=== PATIENT | female | born 2000 | race Caucasian/White ===

== ENCOUNTER 2021-05-06 10:44 | Outpatient (REF) | payer OTHER, SELFPAY ==
[2021-05-06 13:18] LABS: MANUAL DIFF FLAG NO
[2021-05-06 13:20] LABS: Basophils Absolute Auto 0.1 X10*3/uL (0.0-0.2); Basophils Percent Auto 0.8 % (0-2); Eosinophils Absolute Auto 0.1 X10*3/uL (0.0-0.4); Eosinophils Percent Auto 1.9 % (0-4); Hemoglobin 13.9 g/dl (12.0-16.0); Imm Gran Abs Auto 0.01 X10*3/uL (0.00-0.03); Imm Gran Pct Auto 0.2 % (0.0-0.4); Lymphocytes Absolute Auto 2.8 X10*3/uL (1.2-4.9); Lymphocytes Percent Auto 47.1 % (20-40); Mean Corpuscular HGB Conc 33.1 g/dl (31.0-35.0); Mean Corpuscular Hemoglobin 29.1 pg (27.0-33.0); Mean Corpuscular Volume 87.9 fL (80.0-98.0); Mean Platelet Volume 9.2 fL (9.4-12.3); Monocytes Absolute Auto 0.4 X10*3/uL (0.1-1.2); Monocytes Percent Auto 6.6 % (2-11); Neutrophils Absolute Auto 2.6 x10*3/uL (2.0-8.3); Neutrophils Percent Auto 43.4 % (45-73); Platelet Count 279 X10*3/uL (160-400); Red Blood Count 4.78 X10*6/uL (4.20-5.50); Red Cell Distribution Width 12.4 % (11.0-16.0); White Blood Count 5.9 X10*3/uL (4.8-10.8)
[2021-05-06 13:48] LABS: Alanine Aminotransferase 14 U/L (0-31); Albumin Level 4.3 g/dL (3.5-5.0); Alkaline Phosphatase 46 U/L (39-117); Anion Gap 11 (12-20); Aspartate Amino Transferase 15 U/L (5-31); Bilirubin Total 0.4 mg/dL (0.0-1.0); Blood Urea Nitrogen 6 mg/dL (9-16); Calcium 9.6 mg/dL (8.4-10.2); Carbon Dioxide 24 mmol/L (22-29); Chloride 109 mmol/L (96-108); Cholesterol 226 mg/dL; Estimated Glomerular Filt Rate > 60; Glucose Fasting 89 mg/dL (60-99); HDL Cholesterol 44 mg/dL; LDL Cholesterol Calculated 156 mg/dl; Potassium 4.1 mmol/L (3.3-5.1); Sodium 140 mmol/L (135-145); Total Protein 7.4 g/dL (6.5-8.0); Triglycerides 131 mg/dL
[2021-05-06 14:08] LABS: TSH reflex Free T4 1.94 uIU/mL (0.32-4.0)
== END 2021-05-06 10:45 | disposition home or self-care (01) ==
LOC: HO.HMGCLDS 10:44
PROVIDERS: PCP Internal Medicine; Visit Provider Internal Medicine
DX: Z00.01 Encounter for general adult medical examination with abnormal findings (principal)
CPT/HCPCS: 36415; 80053; 80061; 84443; 85025

== ENCOUNTER 2021-05-15 08:28 | Outpatient (REF) | payer OTHER, SELFPAY ==
[2021-05-15 15:14] LABS: CT PCR NOT DETECTED (Not Detect.); NG PCR NOT DETECTED (Not Detect.)
[2021-05-16 09:06] LABS: BV Int Neg Control Negative (Negative); BV Int Pos Control Positive (Positive)
== END 2021-05-15 08:29 | disposition home or self-care (01) ==
LOC: HO.LAB 08:28
PROVIDERS: PCP Internal Medicine; Visit Provider Advanced Practice Midwife
DX: Z30.011 Encounter for initial prescription of contraceptive pills (principal); Z20.2 Contact with and (suspected) exposure to infections with a predominantly sexual mode of transmission
CPT/HCPCS: 81025; 87480; 87491; 87510; 87591; 87660

== ENCOUNTER 2022-05-17 09:47 | Outpatient (REF) | payer OTHER, SELFPAY ==
[2022-05-18 09:56] LABS: BV Int Neg Control Negative (Negative); BV Int Pos Control Positive (Positive)
== END 2022-05-17 09:48 | disposition home or self-care (01) ==
LOC: HO.LNP 09:47
PROVIDERS: Visit Provider Advanced Practice Midwife
DX: Z01.411 Encounter for gynecological examination (general) (routine) with abnormal findings (principal); N89.8 Other specified noninflammatory disorders of vagina; N94.10 Unspecified dyspareunia
CPT/HCPCS: 87480; 87510; 87660; 88142

== ENCOUNTER 2022-08-14 09:36 | Outpatient (REF) | payer OTHER, SELFPAY ==
[2022-08-14 11:11] LABS: MANUAL DIFF FLAG NO
[2022-08-14 11:39] LABS: Basophils Absolute Auto 0.1 X10*3/uL (0.0-0.2); Basophils Percent Auto 0.9 % (0-2); Eosinophils Absolute Auto 0.1 X10*3/uL (0.0-0.4); Eosinophils Percent Auto 1.6 % (0-4); Hematocrit 43.7 % (37.0-47.0); Hemoglobin 14.6 g/dl (12.0-16.0); Imm Gran Abs Auto 0.01 X10*3/uL (0.00-0.03); Imm Gran Pct Auto 0.2 % (0.0-0.4); Lymphocytes Absolute Auto 2.7 X10*3/uL (1.2-4.9); Lymphocytes Percent Auto 46.4 % (20-40); Mean Corpuscular HGB Conc 33.4 g/dl (31.0-35.0); Mean Corpuscular Volume 86.9 fL (80.0-98.0); Mean Platelet Volume 8.8 fL (9.4-12.3); Monocytes Absolute Auto 0.5 X10*3/uL (0.1-1.2); Monocytes Percent Auto 8.5 % (2-11); Neutrophils Absolute Auto 2.5 x10*3/uL (2.0-8.3); Neutrophils Percent Auto 42.4 % (45-73); Platelet Count 262 X10*3/uL (160-400); Red Blood Count 5.03 X10*6/uL (4.20-5.50); Red Cell Distribution Width 12.2 % (11.0-16.0); White Blood Count 5.8 X10*3/uL (4.8-10.8)
[2022-08-14 11:54] LABS: Alanine Aminotransferase 17 U/L (0-31); Albumin Level 4.2 g/dL (3.5-5.0); Alkaline Phosphatase 59 U/L (39-117); Anion Gap 12 (12-20); Aspartate Amino Transferase 17 U/L (5-31); Bilirubin Total 0.5 mg/dL (0.0-1.0); Blood Urea Nitrogen 10 mg/dL (9-16); Calcium 9.5 mg/dL (8.4-10.2); Carbon Dioxide 24 mmol/L (22-29); Chloride 109 mmol/L (96-108); Cholesterol 204 mg/dL; Estimated Glomerular Filt Rate > 60; Glucose Fasting 92 mg/dL (60-99); HDL Cholesterol 39 mg/dL; LDL Cholesterol Calculated 141 mg/dl; Potassium 4.5 mmol/L (3.3-5.1); Sodium 140 mmol/L (135-145); Total Protein 7.1 g/dL (6.5-8.0); Triglycerides 123 mg/dL
== END 2022-08-14 09:37 | disposition home or self-care (01) ==
LOC: HO.HMGCLDS 09:36
PROVIDERS: PCP Internal Medicine; Visit Provider Internal Medicine
DX: Z00.01 Encounter for general adult medical examination with abnormal findings (principal); E78.9 Disorder of lipoprotein metabolism, unspecified
CPT/HCPCS: 36415; 80053; 80061; 85025

== ENCOUNTER 2023-05-22 09:36 | Outpatient (AMB) | payer OTHER, SELFPAY ==
[2023-05-22 09:42] VITALS: BP 106/62; BMI 24.5
--- NOTE | 2023-05-22 09:42 | MHC.OFFVIS ---
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 At around the 14 of May it was a 35 day cycle she had had previously had 40 day cycles before she went on pills so that was interesting for her. She is trying to get at this point. [facility] Surgical History [place] teeth removed Family History (Updated 05/22/23 @ 09:46 by ESPINOZA Vu) Father High cholesterol Paternal Grandmother Cancer Breast cancer Maternal Grandfather Stroke Social History Housing: House Alcohol intake: never Patient Tobacco Use Status: Never used Tobacco e-Cigarette/Vaping Use: Never Used Second Hand Smoke Exposure: No service: No Current occupational status: unemployed Gender identity: Female Cognitive needs: No Hearing needs: No Vision needs: Yes Female Reproductive History Menstrual Age of Menarche: 13 Duration of menses: 3-5 days Date of last menstrual period: 05/14/23 control method: none Total pregnancies: 0 Date of last pap smear: 05/17/22 (negative) Physical Exam Vital Signs: Last Vital Signs BP 106/62 05/22/23 09:42 BMI result Body Mass Index 24.5 Const General: healthy appearing, comfortable, no acute distress, well developed and alert Nutritional Appearance: average body habitus Orientation/consciousness: patient oriented x3 Limitations: no limitations HEENT Head: Yes normocephalic Neck Neck: Yes normal visual inspection Chest Chest palpation & inspection: normal inspection of the chest Breast/axilla inspection: normal inspection of the breasts and normal inspection of the axillae Breast/axilla palpation: normal palpation of the breasts and normal palpation of the axillae Resp Effort & Inspection: normal respiratory effort GI Inspection: Yes normal to inspection, No Abdominal wall edema and No distended Palpation (GI): Soft to palpation and nontender General: Yes bladder normal to palpation External Female Exam: normal external appearance and normal appearance of the urethra Speculum Exam - Vagina: normal appearance of the vagina, normal palpation and normal vaginal discharge Speculum Exam - Cervix: normal appearance of the cervix, normal palpation and nontender Bimanual exam- vagina & uterus: normal bimanual exam, normal palpation, uterine size normal, bladder normal to palpation, consistency normal, normal palpation, uterine mobility normal, uterine shape normal, No Cervical tenderness present, non-tender and no cervical motion tenderness Bimanual Exam- Adnexa, other: normal adnexae, no masses, normal and No adnexal tenderness Neuro General: patient oriented x3 Assessment & Plan Assessment & Plan (1) Cervical cancer screening: Comment: first pap done 05/17/22=neg. Code(s): Z12.4 - Encounter for screening for malignant neoplasm of cervix (2) Well woman exam with routine gynecological exam: Code(s): Z01.419 - Encounter for gynecological examination (general) (routine) without abnormal findings (3) Encounter for preconception consultation: Code(s): Z31.69 - Encounter for other general counseling and advice on procreation Plan -----Discussed in this visit the following: healthy balanced diet, regular and consistent exercise, getting recommended health screens, doing the best she can for her particular health concerns, kegel exercises, pap smear screening and followup recommendations, mammography screening and SBE, normal changes in cycles in her life stage--- .---I discussed with pt some of the optimal strategies for planning a , including achieving the best health she can before , including heathy balanced diet, exercise, wt loss to ideal BMI if appropriate, avoiding toxic substances and medications, not smoking, and taking a multivitamin w folic acid daily. Any specific health concerns should be managed before seeking/ putting oneself at risk of pregancy. In addition I reviewed normal cycles, fertility awareness and signs of ovulation, and timing to avoid, and achieve when she feel ready. I also discussed emotional and relationship and support readiness before embarking on . ---I Had the patient and demonstrate a Kegel contraction at the end of the exam, ordered in order to explain a Kegel exercise, and instructed the patient on doing the same exercises several times a day with increasing strength each time. One useful to is to imagine pursestring around the vagina and pulling it tight and upwards as if raising the vagina, or imagining that her tight muscles are on the 1st floor and she is trying to pull them up to the 5th floor and then slowly letting them go down. To try to do these several times a day but focus on the quality and the strength of the exercises more than the quantity, and tried isolate just those muscles and not involve other body parts. Discussed also the importance of being in the habit of not holding one's urine for excessive periods of time as this puts on extra strain and not to take up smoking or other factors that can influence pelvic floor health maintaining a normal weight is also helpful. Also went into some detail about the options for care and delivery in this area [place] the [place] deliveries do not take place at [facility] anymore and so while we can offer care for women and have them deliver at [facility] somebody having their 1st baby will have lots of questions and concerns and I recommend that they consider seeking care from where they would want to deliver and with the team that would be involved in their care from the start for comprehensive and delivery care options available in this area discussed Vitamin sent to her pharmacy at her request. Medications: New PNV,calcium 06-agrp-atisd acid 27 mg iron- 1 mg ( Vitamins Plus Low Iron) 1 tab PO DAILY 90 tabs 3RF Coding Level of Care Code Est Pt Prev Care 18-39y(85897) Diagnoses Cervical cancer screening Z12.4 Well woman exam with routine gynecological exam Z01.419 Encounter for preconception consultation Z31.69
== END 2023-05-22 10:31 | disposition home or self-care (01) ==
LOC: HO.HWS 09:36
PROVIDERS: PCP Internal Medicine; Visit Provider Advanced Practice Midwife
DX: Z12.4 Encounter for screening for malignant neoplasm of cervix (principal); Z01.419 Encounter for gynecological examination (general) (routine) without abnormal findings; Z31.69 Encounter for other general counseling and advice on procreation
CPT/HCPCS: 99395

== ENCOUNTER → 2023-05-22 09:36 | Outpatient (BNVA) | payer OTHER, SELFPAY | PROVIDERS: PCP Internal Medicine; Visit Provider Advanced Practice Midwife ==

== ENCOUNTER 2023-06-12 11:31 | Outpatient (AMB) | payer OTHER, SELFPAY ==
--- NOTE | 2023-06-12 11:34 | MHC.PC.OV ---
Vital Signs 06/12/23 11:35 Height 5 ft 2 in Weight 134 lb 2 oz BMI 24.5 BP 112/70 Blood Pressure Location Lt brachial Position Sitting Pulse 83 Pulse Source Pulse Oximeter Pulse Oximetry (%) 99 Oxygen Delivery Method Room Air Intake Visit Reasons: annual PE Is last menstrual period known: Yes Last menstrual period: 05/14/23 Allergies No Known Allergies Allergy (Verified 06/12/23 11:35) Tobacco use date assessed: 06/12/23 Dental Screening Dental Screen Date: 06/12/23 Did you have a dental visit in the last 12 months?: Yes Did you have a dental problem in the last 6 months where you did not have access to dental care?: No Was dental information given to patient?: Patient has dentist HPI annual PE HPI Details Physical exam appointment breast exam and Pap smear through OBGYN LDL is in 140s, I recommend lifestyle modification exercise and eat healthy [facility] Surgical History [place] teeth removed Family History Father High cholesterol Paternal Grandmother Cancer Breast cancer Maternal Grandfather Stroke Social History Housing: House Alcohol intake: never Patient Tobacco Use Status: Never used Tobacco e-Cigarette/Vaping Use: Never Used Second Hand Smoke Exposure: No service: No Current occupational status: unemployed Gender identity: Female Cognitive needs: No Hearing needs: No Vision needs: Yes Female Reproductive History Menstrual Age of Menarche: 13 Date of last menstrual period: 05/14/23 Questionnaire PHQ-9 Over the last 2 weeks, how often have you been bothered by any of the following problems? 1. Little interest or pleasure in doing things: not at all 2. Feeling down, depressed, or hopeless: not at all 3. Trouble falling or staying asleep, or sleeping too much: several days 4. Feeling tired or having little energy: not at all 5. Poor appetite or overeating: not at all 6. Feeling bad about yourself - or that you are a failure or have let yourself or your family down: not at all 7. Trouble concentrating on things, such as reading the newspaper or watching television: not at all 8. Moving or speaking so slowly that other people could have noticed. Or the opposite - being so fidgety or restless that you have been moving around a lot more than usual: not at all 9. Thoughts that you would be better off or of hurting yourself in some way: not at all Total score: 1 Depression Screening Interpretation: Negative Depression Screening Done: Yes 84329 - PHQ-9 Billing: Yes Source: Developed by Drs. Amaury Quintero, Mitali Patel, Issa Palafox and colleagues, with an educational naheed from [employer]. Thrive Questionnaire Date Thrive assessed: 06/12/23 I am a: Patient What is your living situation today?: I have a steady place to live Within the past 12 months, did the food you bought not last and you didn't have the money to get more?: Never true Within the past 12 months, did you worry whether your food would run out before you got money to buy more?: Never true Do you have trouble paying for medicines?: No Do you have trouble getting transportation to medical appointments?: No Do you have trouble paying your heating and electricity bill?: No Do you have trouble taking care of your child, family member or friend?: No Do you have trouble with day-to-day activities such as bathing, preparing meals, shopping, managing finances, etc.?: No Are you currently unemployed and looking for a job?: No Are you interested in more education?: No Please select the resources that you would like help with: None Currently or been in a relationship where the following occur: no concerns reported THRIVE Score: 0 AUDIT C Alcohol Use Questionnaire (AUDIT-C) 1. How often do you have a drink containing alcohol?: Never 3. How often do you have six or more drinks on one occasion?: Never Total Score: 0 Score Reviewed/Action Taken: Yes MANPREET-7 AMB Questionnaire MANPREET-7 Date MANPREET - 7 assessed: 06/12/23 Feeling nervous, anxious, or on edge: 0 = Not at all Not being able to stop or control worryin = Not at all Worrying too much about different things: 0 = Not at all Trouble relaxin = Not at all Being so restless that it is hard to sit still: 0 = Not at all Becoming easily annoyed or irritable: 0 = Not at all Feeling afraid as if something awful might happen: 0 = Not at all Total MANPREET-7 score (0-4 normal; 5-9 mild; 10-14 moderate; 15-21 severe): 0 Source: Developed by Drs. Amaury Quintero, Mitali Patel, Issa Palafox and colleagues, with an educational naheed from [employer]. MANPREET-7 Assessment Billing MANPREET-7 Assessment Tool: MANPREET-7 Assessment [id number] Review of Systems Const Denies chills, Denies fever(s) and Denies headache(s) Eyes Denies blurry vision ENT Denies headache(s), Denies nasal discharge, Denies nasal obstruction, Denies odynophagia and Denies sinus pain Card Denies chest pain at rest and Denies chest pain with activity Resp Denies cough and Denies hemoptysis GI Denies diarrhea, Denies odynophagia, Denies vomiting and Denies hematemesis Reports as per HPI Musc Denies abnormal gait Skin/Breast Reports as per HPI Neuro Denies Neuro-related abnormal movements, Denies Abnormal speech present, Denies abnormal gait, Denies headache(s) and Denies Sensory deficit (Neuro) Psych Denies mood swings and Denies paranoia Endo Reports as per HPI Amado/Lymph Reports as per HPI Aller/Immun Reports as per HPI Physical exam (Primary Care) Vital Signs: Last Vital Signs Pulse 83 06/12/23 11:35 BP 112/70 06/12/23 11:35 Pulse Ox 99 06/12/23 11:35 Oxygen Delivery Method Room Air 06/12/23 11:35 BMI result Body Mass Index 24.5 Tobacco/Smoking Status: Tobacco use Status Tobacco use date assessed 06/12/23 06/12/23 11:37 Patient Tobacco Use Status Never used Tobacco 06/12/23 11:37 e-Cigarette/Vaping Use Never Used 06/12/23 11:37 PHQ-9: PHQ-9 Score PHQ-9: Total score 1 06/12/23 11:54 Depression Screening Interpretation: Negative Thrive Assessment: Date of Thrive Assessment Date Thrive assessed 06/12/23 06/12/23 11:49 Currently or been in a relationship where the following occur: no concerns reported Const General: cooperative, comfortable and no acute distress Orientation/consciousness: patient oriented x3 HENMT Head: Yes normocephalic and Yes atraumatic Eyes General: appearance normal, both eyes and all related structures Pupils: Equal, round and reactive pupils present EOM: EOMs intact bilaterally Neck Neck: Yes supple and No lymphadenopathy Thyroid: Thyroid normal Lymphatic: no lymphadenopathy noted Resp Effort & Inspection: normal respiratory effort and able to speak in complete sentences Auscultation: clear to auscultation bilaterally Cardio Heart sounds: S1 normal heart sound present and S2 normal heart sound present GI Palpation (GI): Soft to palpation and nontender Auscultation: normal bowel sounds General: Yes no CVA tenderness Back/Spine/Pelvis Back: no CVA tenderness Skin General skin exam: elasticity normal and turgor normal Neuro General: patient oriented x3 and gait normal Cranial nerves: Yes Equal, round and reactive pupils present Speech: No Abnormal speech present Sensory Exam: No Sensory deficit (Neuro) Coordination: tandem gait normal and Romberg test negative Extrem General: Yes normal exam except as noted and No edema Assessment and Plan Assessment & Plan (1) Encounter for general adult medical examination without abnormal findings: Code(s): Z00.00 - Encounter for general adult medical examination without abnormal findings Plan Physical exam appointment breast exam and Pap smear through OBGYN LDL is in 140s, I recommend lifestyle modification exercise and eat healthy Coding Level of Care Code Est Pt Prev Care 18-39y(75923) Diagnoses Encounter for general adult medical examination without abnormal findings Z00.00 Additional Codes MANPREET-7 Assessment Billing - MANPREET-7 Assessment Tool: MANPREET-7 Assessment [id number] ([id number])
[2023-06-12 11:35] VITALS: BP 112/70; PULSE 83; O2SAT 99; BMI 24.5
== END 2023-06-12 12:10 | disposition home or self-care (01) ==
PROVIDERS: Visit Provider Internal Medicine
DX: Z00.00 Encounter for general adult medical examination without abnormal findings (principal)
CPT/HCPCS: 99395

== ENCOUNTER 2024-06-17 10:34 | Outpatient (AMB) | payer BC, SELFPAY ==
--- NOTE | 2024-06-17 10:37 | MHC.PC.OV ---
Vital Signs 06/17/24 10:43 Height 5 ft 2 in Weight 146 lb 9 oz BMI 26.8 BP 112/72 Blood Pressure Location Rt brachial Position Sitting Pulse 90 Pulse Source Pulse Oximeter Temp 98.1 F Temp Source Oral Pulse Oximetry (%) 98 Oxygen Delivery Method Room Air Intake Visit Reasons: Annual PE Allergies No Known Allergies Allergy (Verified 06/17/24 10:44) Medication List - Last Reconciled 06/17/24 by Saurabh Gomes MD PNV,calcium 31-bgcf-wbafb acid 27 mg iron- 1 mg ( Vitamins Plus Low Iron) 1 tab PO DAILY Tobacco use date assessed: 06/17/24 Dental Screening Dental Screen Date: 06/17/24 Did you have a dental visit in the last 12 months?: Yes Did you have a dental problem in the last 6 months where you did not have access to dental care?: No Was dental information given to patient?: Patient has dentist HPI Annual PE HPI Details - The patient is a 23-year-old female presenting for a physical examination and evaluation of a ganglion cyst on the dorsum of her left hand. - History of cyst development , possibly linked to carpal tunnel syndrome experienced during . Delivery was last month patient had a baby girl 1st - status is marked by back discomfort while holding the infant and mild skin changes due to hormonal alterations. - The patient is nursing and engaged in discussions around recovery strategies, including pelvic floor exercises. - Skin conditions exhibit benign skin mole formations and hormonal acne. - Vaccination history indicates a Tdap booster due for administration, with prior tetanus vaccination recorded in 2012. Health Maintenance - Tdap booster vaccination due every 10 years; administered during visit. - Advice regarding exercise: delayed initiation of intensive core strengthening due to diastasis recti. - Recommendation for pelvic floor exercises (Kegels) twice daily to assist recovery. - Monitor cyst on the hand; if persistent, consider further evaluation. Review of Systems - General: No fever no chills - Neurological: No headaches no dizziness - Ear nose throat: No sore throat no hearing difficulty no ear pain - Cardiovascular: No syncope, no chest pain, no palpitations - Gastrointestinal: No nausea vomiting or diarrhea - Endocrine: No polyuria polydipsia no heat intolerance - Genitourinary: No dysuria - Skin: No new complaints Physical Exam General: Cooperative, healthy appearing, comfortable, no acute distress Orientation: Patient oriented x3 Limitations: None Head: Normal to inspection Ears: Within normal limit visually Nose: Normal external nose present Face and sinus: Normal facial exam Eyes: Appearance normal, extraocular movement intact pupils reactive Neck: Normal visual inspection and supple Respiratory: Normal respiratory effort and able to speak in complete sentences. Clear to auscultation, no stridor Cardiovascular: S1 and S2 GI: Normal to inspection. Soft to palpation and nontender Skin: Turgor normal, no acute findings. Noted benign reddish moles due to hormonal changes, no rash Neuro: Patient oriented x3, motor sensory intact, balance intact, tandem pass Extremities: Normal to inspection, noted cyst on the back of the left hand, small nontender size of pea PFSH Surgical History [place] teeth removed Family History Father High cholesterol Paternal Grandmother Cancer Breast cancer Maternal Grandfather Stroke Social History Housing: House Alcohol intake: never Patient Tobacco Use Status: Never used Tobacco e-Cigarette/Vaping Use: Never Used Second Hand Smoke Exposure: No service: No Current occupational status: unemployed Gender identity: Female Cognitive needs: No Hearing needs: No Vision needs: Yes Female Reproductive History Menstrual Age of Menarche: 13 Questionnaire PHQ-9 Over the last 2 weeks, how often have you been bothered by any of the following problems? 1. Little interest or pleasure in doing things: not at all 2. Feeling down, depressed, or hopeless: not at all 3. Trouble falling or staying asleep, or sleeping too much: not at all 4. Feeling tired or having little energy: several days 5. Poor appetite or overeating: not at all 6. Feeling bad about yourself - or that you are a failure or have let yourself or your family down: not at all 7. Trouble concentrating on things, such as reading the newspaper or watching television: not at all 8. Moving or speaking so slowly that other people could have noticed. Or the opposite - being so fidgety or restless that you have been moving around a lot more than usual: not at all 9. Thoughts that you would be better off or of hurting yourself in some way: not at all Total score: 1 Depression Screening Interpretation: Negative Depression Screening Done: Yes 97715 - PHQ-9 Billing: Yes Source: Developed by Drs. Amaury Quintero, Mitali Patel, Issa Palafox and colleagues, with an educational naheed from [employer]. Thrive Questionnaire Date Thrive assessed: 06/17/24 I am a: Patient What is your living situation today?: I have a steady place to live Within the past 12 months, did the food you bought not last and you didn't have the money to get more?: Never true Within the past 12 months, did you worry whether your food would run out before you got money to buy more?: Never true Do you have trouble paying for medicines?: No Do you have trouble getting transportation to medical appointments?: No Do you have trouble paying your heating and electricity bill?: No Do you have trouble taking care of your child, family member or friend?: No Do you have trouble with day-to-day activities such as bathing, preparing meals, shopping, managing finances, etc.?: No Are you currently unemployed and looking for a job?: No Are you interested in more education?: No Please select the resources that you would like help with: None Currently or been in a relationship where the following occur: No concerns reported THRIVE Score: 0 AUDIT C Alcohol Use Questionnaire (AUDIT-C) 1. How often do you have a drink containing alcohol?: Never 3. How often do you have six or more drinks on one occasion?: Never Total Score: 0 Score Reviewed/Action Taken: Yes MANPREET-7 AMB Questionnaire MANPREET-7 Date MANPREET - 7 assessed: 06/17/24 Feeling nervous, anxious, or on edge: 1 = Several days Not being able to stop or control worryin = Not at all Worrying too much about different things: 0 = Not at all Trouble relaxin = Not at all Being so restless that it is hard to sit still: 0 = Not at all Becoming easily annoyed or irritable: 0 = Not at all Feeling afraid as if something awful might happen: 1 = Several days Total MANPREET-7 score (0-4 normal; 5-9 mild; 10-14 moderate; 15-21 severe): 2 Source: Developed by Drs. Amaury Quintero, Mitali Patel, Issa Palafox and colleagues, with an educational naheed from [employer]. MANPREET-7 Assessment Billing MANPREET-7 Assessment Tool: MANPREET-7 Assessment 31719 Physical exam (Primary Care) Vital Signs: Last Vital Signs Temp 98.1 F 06/17/24 10:43 Pulse 90 06/17/24 10:43 BP 112/72 06/17/24 10:43 Pulse Ox 98 06/17/24 10:43 Oxygen Delivery Method Room Air 06/17/24 10:43 BMI result Body Mass Index 26.8 Tobacco/Smoking Status: Tobacco use Status Tobacco use date assessed 06/17/24 06/17/24 10:45 Patient Tobacco Use Status Never used Tobacco 06/17/24 10:38 e-Cigarette/Vaping Use Never Used 06/17/24 10:38 PHQ-9: PHQ-9 Score PHQ-9: Total score 1 06/17/24 11:01 Depression Screening Interpretation: Negative Thrive Assessment: Date of Thrive Assessment Date Thrive assessed 06/17/24 06/17/24 10:45 Currently or been in a relationship where the following occur: No concerns reported Immunizations Boostrix Tdap 2.5 Lf unit-8 mcg-5 Lf/0.5 mL intramuscular syringe Performing Provider: Saurabh Gomes MD Performing Location: [facility] [place] [facility] Administered by: ESPINOZA Wilson on 06/17/24 11:01 Dose Route Admin Location Dispensed Lot Number Expiration Date [facility] Art Therapist 0.5 mL IM Left Deltoid 0.5 mL [id number] 07/15/26 [id number] [employer] VIS Given Date VIS Provided VIS Publication Date 06/17/24 Single Vaccine 20 Eligibility Eligibility Date Funding Source Not [facility] Eligible 06/17/24 Private Coding Level of Care Code Est Pt Level 3 (61000) Est Pt Prev Care 18-39y(66710) Diagnoses Encounter for general adult medical examination without abnormal findings Z00.00 Ganglion cyst of tendon sheath of left hand M67.442 Additional Codes MANPREET-7 Assessment Billing - MANPREET-7 Assessment Tool: MANPREET-7 Assessment 46119 ([id number]) PHQ-9 - 51691 - PHQ-9 Billing: Yes ([id number]) Assessment & Plan Assessment & Plan (1) Encounter for general adult medical examination without abnormal findings: Code(s): Z00.00 - Encounter for general adult medical examination without abnormal findings Category: Medical (2) Ganglion cyst of tendon sheath of left hand: Code(s): M67.442 - Ganglion, left hand Category: Medical Plan - The patient is a 23-year-old female presenting for a physical examination and evaluation of a ganglion cyst on the dorsum of her left hand. - History of cyst development , possibly linked to carpal tunnel syndrome experienced during . Delivery was last month patient had a baby girl 1st - status is marked by back discomfort while holding the infant and mild skin changes due to hormonal alterations. - The patient is nursing and engaged in discussions around recovery strategies, including pelvic floor exercises. - Skin conditions exhibit benign skin mole formations and hormonal acne. - Vaccination history indicates a Tdap booster due for administration, with prior tetanus vaccination recorded in 2012. Health Maintenance - Tdap booster vaccination due every 10 years; administered during visit. - Advice regarding exercise: delayed initiation of intensive core strengthening due to diastasis recti. - Recommendation for pelvic floor exercises (Kegels) twice daily to assist recovery. - Monitor cyst on the hand; if persistent, consider further evaluation. Orders: Orders TSH reflex Free T4 Today Z00.00 - Encounter for general adult medical examination without abnormal findings Vitamin D 25-OH (D2 and D3) Today Z00.00 - Encounter for general adult medical examination without abnormal findings Complete Blood Count Auto Diff Today Z00.00 - Encounter for general adult medical examination without abnormal findings Comprehensive [place]. Panel Fast Today Z00.00 - Encounter for general adult medical examination without abnormal findings Lipid Panel Today Z00.00 - Encounter for general adult medical examination without abnormal findings TDaP Immunization Today Z23 - Encounter for immunization
[2024-06-17 10:43] VITALS: BP 112/72; PULSE 90; TEMP 36.7; O2SAT 98; BMI 26.8
--- OUTSIDE RECORDS SUMMARY | 2024-06-17 11:12 | XMS_ITS | Continuity of Care Document ---
Author Organization [facility] ter Address [address] [place] [id number]- Care Team Providers Care Network Support Technician Name Role Phone Eliseo HERRERA, Asma Primary Care Physician Encounter [facility] ACCT R [id number] Date(s): 05/22/24 - 05/24/[address] [address] Discharge Disposition: A-D/C Home Attending Physician: Catrachita Tsai DO Admitting Physician: Catrachita Tsai DO Referring Physician: Catrachita Tsai DO Encounter Type: Disch IP Allergies, Adverse Reactions, Alerts No Known Allergies Medications Acetaminophen Tablet 650 mg, Tablet, By Mouth, Every 4 hours, PRN for Pain , Mild, (1-3), may give 325mg per patient preference and re-dose with 325mg within 4 hours, if needed. Patient should only receive a total of 650mg of Acetaminophen every 4 hours., Routine, 05/22/24 4:47:00 PM EST Start Date: 05/22/24 Stop Date: 05/25/24 Status: Discontinued Repeat number: 1 M- Plus oral tablet 1 tablet, By Mouth, Daily, # 90 tablet, 3 Refills, Maintenance, 10/01/23 11:06:00 AM EDT, [id number], Partial fill upon patient request if the prescription is for a schedule II opioid drug., 1 tablet By Mouth Daily Start Date: 10/01/23 Status: Ordered Quantity: 90.0 Unit: tablet Repeat number: 4 Problem List Condition Confirmation Course Effective Dates Status Health St atus Informant GBS carrier Confirmed Active Confirmed Active Vital Signs Most recent to oldest [Reference Range]: 1 2 3 Height 158 cm (05/24/24 10:00 AM) 158 cm (05/23/24 4:00 PM) 158 cm (05/23/24 8:00 AM) Oxygen Saturation [94-100 %] 100 % (05/24/24 10:00 AM) 100 % (05/24/24 12:02 AM) 100 % (05/23/24 4:00 PM) Pulse Rate [55-90 bpm] 82 bpm (05/24/24 10:00 AM) 77 bpm (05/24/24 12:02 AM) 92 bpm *H* (05/23/24 4:00 PM) Blood Pressure [90-138/55-84 mm Hg] 120/69mm Hg (05/24/24 10:00 AM) 120/74mm Hg (05/24/24 12:02 AM) 111/70mm Hg (05/23/24 4:00 PM) Respiratory Rate [16-30 br/min] 18 br/min (05/24/24 10:14 AM) 17 br/min (05/24/24 10:00 AM) 17 br/min (05/24/24 12:02 AM) Temperature [96.8-100.4 DegF] 97.7 DegF (05/24/24 10:00 AM) 98.0 DegF (05/24/24 12:02 AM) 98.1 DegF (05/23/24 4:00 PM) Mode of Delivery (Oxygen) Room air (05/24/24 10:00 AM) Room air (05/24/24 12:02 AM) Room air (05/23/24 4:00 PM) Blood pressure sites Arm, left (05/24/24 10:00 AM) Arm, left (05/24/24 12:02 AM) Arm, left (05/23/24 4:00 PM) Temperature Route Oral (05/24/24 10:00 AM) Oral (05/24/24 12:02 AM) Oral (05/23/24 4:00 PM) Social History Social History Type Response Smoking Status Never (less than 100 in lifetime) entered on: 10/01/23 Sex Sex Representation Female (finding) History and physical note * Julio Hawkins CNM: PERFORM Event Display: History and Physical Hospital Authored Date: [id number] Patient: ??VIDAL ESCOBEDO ? Age:??23 Years?Sex:??Female?:??2000?? OB Reason for Admission OB Reason for Admission Reason for admission: Labor LMP/EGA/RACHEL Gestational Age (EGA) and RACHEL? * Note: EGA calculated as of 05/22/2024 ?? RACHEL:??05/17/2024?EGA*:??40 weeks 5 days ? History?(0,0,0,0)?Method:??Ultrasound??(10/16/2023) History of Present Illness Vidal is a 23yo who is currently 40+5 weeks gestation. [facility] SROM of clear fluid and increase in strength and frequency of UCs at??2AM. She denies any bleeding. Has been tracking UCs??with partner and notes it to be q 3-4mins apart. Hoping for a natiural??labor and . Supported by partner at bedside.? is significant for the following: -GBS pos- declines??prophylaxis?? Review of Systems ?Constitutional - neg ?Endocrine - neg ?Breast - neg ?Resp - Neg,??no SOB ?Cardio - Neg ?Urinary - no dysuria, frequency, odor, hematuria ?Cloth Dyeing Range Tender -watery and mucusy??discharge, no large gush of fluid,??no itching, no odor, no lesions ?GI -??no nausea,??no vomiting,??no diarrhea ?Neuro - neg,??no headaches,??no visual changes,??no dizziness ?Psych - neg, no depression of anxiety Physical Exam Vitals & Measurements HT:??158??cm?? Constitutional?? Appearance: Normal affect.? Skin?? Skin: Normal exam. ? Neurological/Psychiatric?? Orientation: Time, Place, Person. ? Affect: Normal. ? No headaches, no visual disturbances Abdomen/GI?? gravid. ? Not Tender. ? No Masses. ? Gynecologic?? External Genitalia: no lesions Urethral meatus: Normal exam. ? Urethra: normal to palpation.? Vagina: Normal exam, normal support, no lesions, no discharge.? Spec Exam Pos??pooling; NEG??ferning; NEG??nitrazine Vtx via leopolds. OB Assessment Baby A ?Baseline: 130 ?Baseline Description: Normal, 110-160 bpm ?Baseline Variability: Moderate variability ?Accelerations: Present ?Deceleration: None ? Activity: Present Uterine ??Number of Contractions per 10 minutes??3 ??Monitor Mode, Uterine External Cervical ??Cervical Dilatation 4 cm ??Cervical Effacement 70% ?? Station -4 Assessment/Plan ?? 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 Email Operations Manager 1/3 and again today on admission.?? IV in labor Pt highly motivated for physiologic .?? Open to treat??GBS on indication rather that routine prophylaxis:??indications reviewed? Infant management if noGBS prophylaxis inc. 2??day stay, lab testing. ?? Normal labor (O80):? Nml??Labor GBS pos status Cat 1 tracing Intact membranes with no evidence of SROM.? Plan for intermittent monitoring Admit to LDRP Encouraged OOB and ambulation Will recheck in 3-4hrs or prn.? OB History History?(0,0,0,0)?No previous pregnancies history have been recorded Labs Labs Labs & Tests ABO: O (10/09/23) Antibody Screen: Negative (10/09/23) Glucose 50 Gm, +60 Minutes: 128 mg/dL (02/27/24) Hct: 39.3 % (02/27/24) Hepatitis B Surface Antigen: Negative (10/09/23) Hepatitis C Ab: Non Reactive (10/09/23) Hgb: 13 Gm/dL (02/27/24) HIV 4th Generation Ab-Ag Result: Non Reactive (10/09/23) RH Test Only: Positive (10/09/23) Rubella IgG Ab: 1.06 (10/09/23) Strep Gp B CATHIE: Positive Abnormal (04/20/24) Syphilis Screen by TANIA: Non Reactive (02/27/24) Varicella IgG Ab: 194 (10/09/23) Problem List Active Active Problem List GBS carrier: (Medical) : (Obstetric) (08/28/23) : (Medical) Procedure/Surgical History Extraction of wisdom tooth: 2019 Home Medications Multivitamin, : 1 tablet, By Mouth, Daily Allergies NKA Social History Alcohol Use: Never. Electronic Cigarette/Vaping Electronic Cigarette Use: Never. Employment/School Status: Homemaker. Exercise Self assessment: Good condition. Regular exercise: No. Home/Environment Living situation: Home/Independent. Lives with: Spouse. Marital Status of Patient if Patient Independent Adult: . Firearms in household: Yes. Smoker in household: No. Nutrition/Health Diet: Regular. Sexual Gender identity: Identifies as female. Preferred pronoun: She/her. Substance Abuse Use: Never. Tobacco Use: Never (less than 100 in lifetime). Family History Father: Hypercholesterolemia Mother: Negative Pat. Grandmother: Hypercholesterolemia Plan OB Plan Contraceptives: Progesterone only contraceptive pills (05/22/24) Infant Feeding Plan: Breast milk (05/22/24) Labor Coping Mechanisms: No pharmacological interventions (05/22/24) Patient Requests: Baby girl, name undecided. ??Really want tub for labor. ??Aware that availibilityis limited. ??Discuss hydrotherapy via shower.. Self studying Moises method. (05/22/24) Hospital Progress note * Kira Millan RN: PERFORM, SIGN, VERIFY Event Display: Progress Note Hospital Authored Date: [id number] Patient: VIDAL ESCOBEDO Age: 23 years Sex: Female : 2000 Associated Diagnoses: None Author: Kira Millan RN Pt A&Ox4. VSS. Pt OOB independently. Pt eating and drinking well. Pt educated to fill out EPDS this morning prior to discharge today. Mild cramping reported, Tylenol PRN administered and tolerable per pt. Pt aware of plan for discharge today. * Kira Millan RN: PERFORM, SIGN, VERIFY Event Display: Progress Note Hospital Authored Date: Patient: VIDAL ESCOBEDO Age: 23 years Sex: Female : 2000 Associated Diagnoses: None Author: Kira Millan RN Pt A&Ox4. VSS. Pt ambulatory OOB independently. Pt educated on EPDS which remains at the bedside. Pt w/ 5/10 mild cramping through out the day, tolerable w/ PRN Tylenol and Motrin. Pt breast feeding infant good every 2 hours. Will update on coming RN w/ plan of care. * Stone Butcher CNM: PERFORM Event Display: Progress Note Hospital Authored Date: [id number] Patient: ??VIDAL ESCOBEDO ? Age:??23 Years?Sex:??Female?:??2000?? Subjective Vidal is day 1 s/p SVB She reports that her labor was difficult??but she is so proud of herself for having the unmedicatedbirth she was hoping for, and felt supported by her dumper bailer operator at delivery. Reports the initial exam was the most challenging part of the process for her?? She had experienced SOB when ambulating yesterday, which has since resolved?? VB decreasing appropriately Pain is decreasing appropriately, well controlled w/ PO ibuprofen and acetaminophen She has been voiding w/o issue. She has not had a bowel movement Reports minimal??discomfort from laceration She is currently??. Reports it is going well, working on latch. She would like to see when she can She is supported by FOB and family??at bedside She plans to go home tomorrow?? Review of Systems Constitutional: No fever or chills; no dizziness, no lightheadedness; + fatigue Neurologic: No headache, no visual disturbances Psychologic: No??depression, no anxiety?? Cardiovascular: No chest pain? Respiratory: No shortness of breath Gastrointestinal: : No nausea or vomiting, no abdominal pain;??+ cramping Gynecologic: + mild??vaginal/perineal pain, + cramping, +moderate vaginal bleeding?? Physical Exam Vitals & Measurements T:??97.4?F?? HR:??98??(Peripheral)?? RR:??18?? RR:??18?? RR:??18?? BP:??120/68?? SpO2:??98%?? HT:??158??cm?? General: NAD, bonding appropriately??with Heart: appears well perfused Lungs: nonlabored respirations Breasts:??soft and filling, + colostrum; nipples intact Abdomen: soft, appropriately tender; fundus??2 fb below U and firm Perineum: laceration well-approximated, mild edema Lower extremities: No??BLLE??edema; no erythema, warmth Assessment/Plan Discharge Planning:? state (Z39.2):? Healing as anticipated Discussed perineal care - harlan june, ice, perineal bottle Reviewed resources available in the hospital and discharge, and [facility] Reviewed her labor and experience Discussed anticipated discharge tomorrow? 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 ?? Shortness of breath (R06.02):? Resolved day 1 PP? OB Summary : 1 . Baby A - Weight: 3.437 kg Baby A - Date, Time of : 05/22/24 13:58:00 Baby A - Gender: Female Baby A - Complications: Meconium stained fluid EGA at Documented Date, Time: 40W 2D Weight at Delivery Baby A - Delivery Type: Vaginal Delivery Complications: None OB History History?(0,0,0,0)?No previous pregnancies history have been recorded Active Problem List Active Problem List GBS carrier: (Medical) : (Obstetric) (08/28/23) : (Medical) Home Medications Multivitamin, : 1 tablet, By Mouth, Daily Medications Medications (5) Active SCHEDULED: (2) Docusate Sodium 100 mg Capsule (Docusate Sodium Capsule) ??100 mg 1 capsule, By Mouth, 2 times a day Fluzone Trivalent (6mo ??? 64yr) Inj 0.5mL (Influenza, Trivalent Vaccine) ??0.5 mL, Intramuscular, Once CONTINUOUS: (0) PRN: (3) Acetaminophen 325 mg Tablet (Acetaminophen Tablet) ??650 mg, By Mouth, Every 4 hours Chloraseptic Lozenge ??1 lozenge, By Mouth, Every 3 hours Ibuprofen 800 mg Tablet (Ibuprofen Tablet) ??800 mg, By Mouth, Every 8 hours Note * Shannan Camejo: PERFORM Event Display: Care Team Progress Note Authored Date: [id number] Patient: ??YOMIVIDAL WELLS ? Age:??23 Years?Sex:??Female?:??2000?? Assessment/Plan Discharge Planning:?review use of pisa Sore nipple care provided to mother including: Applying colostrum/milk at end of feeding Air drying nipples Use of Lanolin cream Deep asymmetric latch Breaking oral??suction at end of feeding to prevent further soreness Left Nipple: intact, red Right Nipple: bruised, compression bruising, crack at base Review asymmetrical latch, position for deeper latch return for observation of latch, left side, readjust for deeper latch, bring baby in closer, encouraged to unwrap to bring in against mom's chest, aligned well with head extended and deep asymmetrical latch. Review sore nipple care, right nipple damage is improved from this morning. Review engorgement care as they go home and milk is coming in. ?? OB Summary : 1 . Baby A - Weight: 3.437 kg Baby A - Date, Time of : 05/22/24 13:58:00 Baby A - Gender: Female Baby A - Complications: Meconium stained fluid EGA at Documented Date, Time: 40W 2D Weight at Delivery Baby A - Delivery Type: Vaginal Delivery Complications: None OB History History?(0,0,0,0)?No previous pregnancies history have been recorded Active Problem List Active Problem List GBS carrier: (Medical) : (Obstetric) (08/28/23) : (Medical) Home Medications Multivitamin, : 1 tablet, By Mouth, Daily Medications Medications (5) Active SCHEDULED: (2) Docusate Sodium 100 mg Capsule (Docusate Sodium Capsule) ??100 mg 1 capsule, By Mouth, 2 times a day Fluzone Trivalent (6mo ??? 64yr) Inj 0.5mL (Influenza, Trivalent Vaccine) ??0.5 mL, Intramuscular, Once CONTINUOUS: (0) PRN: (3) Acetaminophen 325 mg Tablet (Acetaminophen Tablet) ??650 mg, By Mouth, Every 4 hours Chloraseptic Lozenge ??1 lozenge, By Mouth, Every 3 hours Ibuprofen 800 mg Tablet (Ibuprofen Tablet) ??800 mg, By Mouth, Every 8 hours * Esthela Justin CNM: PERFORM Event Display: Discharge/Transfer Note Hospital Authored Date: [id number] Patient: ??BESWICK, VIDAL ? Age:??23 Years?Sex:??Female?:??2000?? Admit Date Admission Date: 05/22/2024 Discharge Date 05/24/24 OB Reason for Admission OB Reason for Admission Reason for admission: Labor Hospital Course Admitted in spontaneous labor.?? Progressed to SVB with intermittent auscultation, no anesthesia.??SVB with ist degree laceration with repair.?? Normal PP course.?? BF well. OBGYN Hospital Course Pt is doing well this morning. PP pain well controlled with tylenol, declines need for PP meds Tolerating PO, No N/V. Voiding with no difficulty. + BM Ambulating without difficult Breast feeding, and this is going well. Contraception plan: POPs Home support: has preps and supports Constitutional:??No fever or chills HEENT:??No blurred vision or changes in vision Cardiovascular:??No chest pain Respiratory:??No shortness of breath Gastrointestinal:??No nausea or vomiting, no abdominal pain, endorses cramping which is more significant with . WHARF LABOURER: No vaginal pain Neurologic:??No headache?? Objective/Physical Exam on Day of Discharge Vitals & Measurements T:??97.7?F?? HR:??82??(Peripheral)?? RR:??18?? BP:??120/69?? SpO2:??100%?? HT:??158??cm?? affect: normal, no acute distress Alert and oriented x 3 breasts:?? filling, nipples intact bilaterally?? Fundus: midline, firm @ U-2 perineum: no swelling, no echy Lochia: scant rubra LE: trace edema, non tender? Assessment/Plan/Discharge Diagnosis Discharge Planning:? Shortness of breath (R06.02):??Single episode immediately PP, no recurrence ?? state (Z39.2):??nl involution and lochia BF established Discharge?? Activity:?? ADLs for 10 days Regular diet meds:?? home analgesics prn, scripts declined f/i 3 and 6 weeks:?? pt will be called with appt PP teaching done, handout booklet given ?? 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 Delivery Summary Delivery Summary Maternal Information ??Labor Information ?Baby A ?Labor Onset Methods: ??Spontaneous ??Delivery Information ?Obstetrical Laceration: ??Perineal laceration ?Perineal Laceration: ??Midline, 1st degree ?Perineal Laceration Repair: ??Chromic suture ?Delivery Complications: ??None ?Blood Loss(ml): ??250 mL ? Baby A ??Delivery Information ?Delivery Type: ??Vaginal ?Date, Time of : ??05/22/24 13:58:00 ? Position: ??Semi-Siegel ?Foot of bed removed: ??No ?Delayed Cord Clamping: ??Yes ?Placenta Delivery Date/Time: ??05/22/24 14:02:00 ?Placenta Delivery Method: ??Spontaneous ?Placenta Appearance: ??Normal ?Placenta to Pathology: ??No ??Care Team ?Delivery CNM: ??Justin CNM, Esthela ?intelligent systems engineer #1: ??Seidell RN, Anny ??Labor Information ?ROM Date, Time: ??05/22/24 11:23:00 ? monitoring: ??Handheld Doppler ?? Information ? Outcome: ??Live ? Position: ??Occiput anterior ? Weight: ??3.437 kg ? Score 1 minute: ??9 ? Score 5 minute: ??9 ? Score 10 minute: ??9 ?Transferred To: ?? Care area with Family ?Umbilical Cord Description: ??3 vessel cord ? Complications: ??None ?Gender: ??Female ? Discharge Medications ???Multivitamin, (M- Plus oral tablet) Infant Feeding Method No Results Patient Education Titles WebMD [employer]ite Patient Education - OB PP [facility]- Discharge Instructions?? Follow-Up Appointments Added Follow Up ?Time Frame ?Comments [facility] [phone]?4 to 5 weeks * Kira Millan RN: PERFORM Event Display: Discharge/Transfer Note Hospital Authored Date: [id number] Nursing Discharge Note Entered On: 05/24/2024 13:49 EST Performed On: 05/24/2024 13:48 EST by Kira Millan RN Nursing Discharge Note 2 Discharge Time : 05/24/2024 14:53 EST Guerda Alves RN - 05/24/2024 14:54 EST Discharge Level of Care at Discharge : Home/Assisted/Foster Care Patient Left Unit Via : Ambulatory Patient Accompanied Off Unit with : Significant other DC Instructions Provided & Signed by Pt : Yes Patient Understands D/C Instructions : Yes Verbalized Understanding of D/C Plan By : Patient, Significant other Patient Instructions Discharge Signed : Yes Did Pt have Specialty Bed or Wound Vac : No Kira Millan RN - 05/24/2024 13:48 EST * Kira Millan RN: PERFORM, MODIFY Event Display: Patient Education/Instruction Authored Date: [id number] Inpatient Adult Discharge Instructions. [address] [id number] Name: VIDAL ESCOBEDO : 2000?? Visit: 05/22/2024 08:23?? Current Date: 05/24/2024 13:00 ?? Account: [id number]?? Inpatient Adult Discharge Instructions We would like to thank you for allowing us to assist you with your healthcare needs. The following includes patient education materials and information regarding your injury/illness. Our entire staffstrives to provide an excellent experience for our patients and their families. PLEASE ENSURE YOU FOLLOW-UP PER THE INSTRUCTIONS BELOW! ?? YOUR OPINION IS IMPORTANT TO US! Please complete the survey you may receive by mail or email. Your feedback will be used to make improvements to the healthcare experiences of our patients and their families. Surveys are administered by [employer] ?? If further treatment with your primary care physician or another doctor is recommended, it is important for you to keep the appointment. Call your primary care physician or return to the Emergency Department immediately if your condition worsens, fails to improve, or new symptoms develop. If you need to find a doctor, you can call [facility] [employer] for a referral at [phone] or toll free at [phone]) or log in to [email or web address].. ?? [facility], in keeping with [facility] guidance, no longer requires face masks for staff, patientsor visitors in most situations. Similiar to time spent indoors at other locations, there is the chance that you were exposed to repiratory viruses during your time with us (such as flu or COVID-19). If you develop symptoms concerning for a viral respiratory infection, please seek testing (and treatment if indicated) from your medical provider or home test kit. ?? You can view and manage your care through the patient portal or by using a health care cristiano of your choosing. [employer] is a website that allows you to securely view your medical information including your hospital discharge summary, office visit summaries, medications and follow-up visits. You can also request appointments, renew medications, and request access to your medical information using a health care cristiano of your choosing, or just ask a question. You can enroll at [email or web address] or register during your next office visit. You have been discharged from [facility], Patient Care Unit: [facility]??. If you have any questions regarding these instructions, including results of studies pending, afteryou leave, please call us and we will be happy to assist you 19/11. [facility] Your Care Team Attending Physician Catrachita Tsai DO?? Consulting Providers Catrachita Tsai DO?? Discharging Providers Justin CNM, Esthela Your Diagnosis Shortness of breath GBS carrier state Tests Performed Below is a partial list of the tests performed during your hospitalization. You may have had other tests and procedures not included in this list. Please discuss all test results with your provider. No tests performed during this visit.?? Primary Care Provider Saurabh Gomes MD? Advance Directive Health Care Proxy on File Yes - Health Care Proxy Discharge Vitals Temperature: 97.7 DegF Height: 158 cm Pulse Rate: 82 bpm ?? Respiratory Rate: 18 br/min ?? Systolic Blood Pressure: 120 mm Hg ?? Diastolic Blood Pressure: 69 mm Hg ?? Oxygen Saturation: 100 % ?? Studies Pending All studies ordered during this hospital stay have been completed unless listed below. Please discuss all pending results with your provider listed above in these instructions. ?? No incomplete studies found?? What to do next Instructions From Your Doctor ?? Orders? 05/24/24 12:57:00 EST?? Scheduled Follow-Up Appointments Saturday 1:00 PM EST ?? Where: [facility] CLINIC COORDINATOR [address] [place] [id number]- Status: Pending Saturday 1:30 PM EST ?? With: Marisela Oneal CNM Where: [facility] WHARF LABOURER Non [employer] [address] [place] [id number]- Status: Pending You Need to Schedule the Following Appointments Follow Up with??[facility] [phone] When:??Within 4 to 5 weeks Discharge Medications VIDAL ESCOBEDO :2000 Visit Date:05/22/2024 Medications: Please continue your medications until treatment is completed or stopped by your provider. Medications not listed below should be discontinued. Discuss any questions related to medications with your provider. What How Much When Instructions Next Dose Unchanged Multivitamin, (M- Plus oral tablet) 1 tab(s) Oral Daily Prescription Given During Visit No new medications prescribed at time of discharge.?? Laboratory Results Below is a partial list of the most recent Laboratory test results done prior to this discharge. You may have had other tests and procedures not included in this list. Please discuss all test resultswith your provider. Allergies (NKA means No Known Allergies) NKA Problems Active Problems??(3) GBS carrier? Education Materials Below is the list of Educational Leaflet Providered with your Discharge Instructions. [employer] Patient Education - OB PP [facility]- Discharge Instructions?? Valuables and Belongings I fully understand and agree that [facility] accepts no responsibility for all my personal property including clothing, toilet articles, radios, jewelry, dentures, hearing aids, rings, money, or any other property that is in my possession or is brought to me after admission. I understand certain valuables may be placed in a hospital safe for a short period of time. I understand that the hospital is not liable for loss or damage due to accident, fire, or other natural occurrence while said property is in the safe. I accept full responsibility for any personal property that I keep with me, and will not hold the hospital responsible in case of loss or disappearance. I acknowledge that i have been encouraged to send valuables and belongings home. ? Other Discharge Information ? Pulmonary Rehab Status?? Pulmonary Rehab Discharge Status?? Respiratory Rate: 18 br/min ? Common Emergency Awareness Tips IS IT A STROKE? Act FAST and Check for these signs: FACE Does the face look uneven? ARM Does one arm drift down? SPEECH Does their speech sound strange? TIME Call at any sign of stroke ?? Heart Attack Signs Chest discomfort: Most heart attacks involve discomfort in the center of the chest and lasts more than a few minutes, or goes away and comes back. It can feel like uncomfortable pressure, squeezing, fullness or pain. Discomfort in upper body: Symptoms can include pain or discomfort in one or both arms, back, neck, jaw or stomach. Shortness of breath: With or without discomfort. Other signs: Breaking out in a cold sweat, nausea, or lightheaded. Remember, MINUTES DO MATTER. If you experience any of these heart attack warning signs, call to get immediate medical attention! ?? Smoking can increase your chances of developing chronic health problems and can cause harmful effects to other family members in your house. If you smoke, you are strongly encouraged to quit. Please call [facility] at [phone] or [phone] ([phone]) or log in to [email or web address] for referrals to smoking cessation programs. ?? 341 Suicide & Crisis Lifeline is available 19/11 if you or someone you know needs to find a reason to keep living. By calling 837 you'll be connected to a skilled, trained counselor at a crisis center in your area. INPATIENT DISCHARGE INSTRUCTIONS SIGNATURE PAGE VIDAL ESCOBEDO Location:[facility] Registration Date and Time:05/22/2024 08:23 EST Primary Care Physician: Eliseo HERRERA, Asma, Attending Physician: Catrachita Tsai DO, I GREGGVIDAL, have received the above patient education materials/instructions and have verbalized understanding. If ambulance or transport services are being used I further acknowledge being given a choice of service. ?? If you need to contact me, please call me at this number: . Patient/Ticket Sorter Name: Patient/Ticket Sorter Signature: Relationship to Patient: Witness Name/Signature: Date: * Kira Millan RN: PERFORM, SIGN, VERIFY Event Display: Patient Education Handout Authored Date: [id number] * Kira Millan RN: PERFORM Event Display: Patient Education Leaflets Authored Date: [id number] OB [facility]- Discharge Instructions ?? 209 Discharge Care Instructions for the New Mom and Baby Please take a few moments to read through these helpful instructions before you leave the hospital.?? Your nurse will be glad to answer any questions you may have.?? You can also find this and more information throughout the purple Becoming a Family booklet, [facility]???[facility] New Beginnings Guide and the Consultation Services Guide given to you after the of your baby.?? You may also phone our nurses stations if you have further questions.?? [facility]:?? First Floor ([phone]), Second Floor ([phone]).?? Please call your provider if you have any questions or concerns?? before your next appointment. For ongoing support please ???Like?? us on our Facebook page ???[facility] New Beginnings?? andsign up for our email newsletter at [email or web address].?? News and information will besent to you until your baby???s third birthday. Instructions for the New Mother Activity: For the next 2 weeks at home ??? no heavy lifting, avoid unnecessary stair climbing, and no driving(especially if you are taking medicine that may make you sleepy or feel that you are sleep deprived).?? For the next 4-6 weeks - no tampons, no douches, no sexual intercourse. Use your keely bottle to rinse your perineum until your vaginal flow stops.?? If you have stitches in your bottom, they generally dissolve within 7-10 days.?? Apply Tucks/witch slade pads until your soreness subsides.?? Use your bathroom at home every 3 to 4 hours, rinse, and change your pads. Warm showers feel great on achy muscles, sore backs and sore bottoms. Exercise: Walking is the best form of exercise.?? Wait until your follow up appointment with your provider in4-6 weeks before engaging in more strenuous activity. Diet: Drink plenty of fluids to avoid constipation and to help support your recovery. Eat plenty of iron rich foods such as red meat, iron fortified cereals like Total and Cream of Wheat, raisins, prunes, greens and spinach.?? These will help to build your blood count back up as all women lose some blood after delivery.?? Also add foods rich in Vitamin C such as strawberries, oranges, papayas, kale and vaca peppers. Continue to take your vitamins if you are .?? If you are not follow the instructions of your provider.?? If you were prescribed iron supplements such as ferrous sulfate, it is important to continue these until your doctor or dumper bailer operator tells you to stop. Breast Care for Nursing Mothers: Wear a comfortable fitting, supportive nursing bra.?? An underwire bra is not recommended. Express drops of breast milk and rub over your nipples and areola (brown area) before and after each feeding to protect and heal sensitive skin and then air dry your nipples.?? If you are experiencing any soreness, you may purchase nipple cream such as TenderCare or Lansinoh.?? Use it in the following manner:?? finish your feeding or pumping session, self-express colostrum onto your nipple and air dry, apply the nipple cream to the nipple and areola.?? Use only small amounts for best results. If you are having difficulty getting the baby to latch onto the breast due to swelling of the areola, try applying pressure with your fingers for a couple of minutes above and below your nipple and walk your fingers outward softening the area and pushing the swelling away.?? This technique is knownas reverse pressure softening.?? For demonstrations of this and other techniques such as the [place] Hand Expression technique, please refer to the resources section of the Consultation Services Guide that you received from services. When your milk first comes in, usually within 3 to 5 days after delivery, you may experience engorgement.?? Your breasts may become swollen and very tender.?? Cold compresses work great to help with discomfort and reduce swelling. It will get better in a couple of days.?? Continue to nurse your baby frequently.?? Call [facility]???s Consultation Service at [phone], press 1 to schedule an outpatient appointment or press 3 and a real estate listing consultant will return your call that day or the next if you call after 3pm. Breast Care for Bottle Feeding Mothers: Engorgement may occur within the first week after delivery.?? Your breasts may become hard and verytender.?? A cool compress of cleaned raw green cabbage leaves applied to the breast and changed as leaves wilt has been proven helpful for many women.?? Ice packs or frozen bags of peas also work nicely to ease the discomfort.?? The soreness will only last a couple of days. Keep your back turned to the water while showering to decrease breast stimulation. Wear a snug fitting bra such as a sports bra. Incision Care Following Tubal or Section: You may shower as directed by your doctor or dumper bailer operator.?? Pat your incision dry with a clean towel.??You will not need a bandage after the first day. Call your doctor or dumper bailer operator with any signs of infection such as a hard, hot swollen tender incision, especially if the skin around the incision looks pink or red.?? Yellow drainage with an odor may also be a sign of infection to report. Call your doctor or dumper bailer operator if the incision begins to separate. If you have steri-strips on the incision, they will likely fall off in the first week.?? If they have not fallen off by 10 days after delivery, you may remove them. Control: Your doctor or dumper bailer operator will discuss control methods with you when [facility] or at your checkup.?? Be sure to let your provider know if you are . You had a Paragard IUD placed on .?? This control method is effective for 10 years. You had a Liletta placed on .?? This control method is effective for up to 5 years. You had a Nexplanon placed on .?? This control method is effective for up to 3 years. You received a Depo Provera injection on .?? This control method is effective as longas you repeat it every 3 months.?? Schedule your next dose before . You have a prescription for control pills .?? It is important to take a pill everyday at around the same time of day for effective control protection.?? Pain Management: Cramping after is common and increases in strength with each baby you have.?? If you experience painful cramps, and have no allergies to acetaminophen (Tylenol) or ibuprofen (Motrin), you may continue to take these medications as you did in the hospital.?? Ibuprofen is also helpful with back aches following epidurals, perineal pain following a vaginal delivery, and moderate incisional pain after a section or a tubal ligation.?? If you experience gas distention, especially after surgery, you may take an over the counter medication called simethicone.?? Take these chewable tablets 4 times a day as needed and directed on the package.?? Keep moving.?? Walking or rocking in a chair, will help to move the gas along.?? Russell tea made with heated russell anam (instead of water) and a tea bag, stirred to dissolve carbonation (bubbles) is a helpful drink to soothe a gassy stomach. Warning Signs of a Problem to Notify Your Doctor or Web Production Artist of: Heavy vaginal bleeding ??? which is soaking a pad every hour with bright red blood. Passing blood clots the size of an egg or larger. An incision that is not healing. A temperature greater than or equal to 100.4 especially if accompanied by any of the following symptoms ??? painful, frequent urination; extreme back or flank pain; lower belly pain with a foul smellto your vaginal flow; a red hard hot area on your breast.?? Severe headache that does not go away after taking acetaminophen or ibuprofen.?? A headache that changes your vision, including seeing spots or blurring. Right sided upper abdominal pain along the rib cage area. Pain in your legs that is warm and tender to the touch. depression signs may include ??? loss of interest in your baby, weepiness, difficulty focusing, weight loss with no appetite, exhaustion, feeling overwhelmed or anxious, feelings of despair, or thoughts of harming yourself or your baby.?? These symptoms are important and should be discussed with your doctor or dumper bailer operator. depression may develop over a period of time and needs prompt medical attention.?? Do not suffer in silence.?? In both the Becoming a Family booklet and the[facility] New [facility]nings Guide there is a screening tool used to identify women at risk, called the Franklin Scale which you have taken in the office prior to delivery and again during your hospital s asaf.?? Three to four weeks after your delivery, and before your check with your provider, take this test and share your results with your provider.?? Be sure to mention any score of 10 or more.?? Many women, and even some partners, may experience the ???baby blues?? .?? This is a state of feeling overwhelmed and weepy.?? Discomfort from childbirth, hormonal changes, exhaustion, changes to your body and lifestyle are a few of the things that contribute to the highs and lows new parents go through.?? Don???t be afraid to ask your partner or family and friends for some help at home so you can get some rest and a few minutes to yourself.?? The blues will quickly pass. Personal Safety: Every person has the right to feel safe at home and live free from physical or emotional harm.?? Ifyou have suffered mental or physical abuse at home, you are not alone.?? There is help.?? Please call HOTLINE or the [facility] at [phone]. CARE Bathing: Give your baby a sponge bath until the cord falls off in about 1-3 weeks.?? It is not necessary to bathe your baby every day, usually every few days is sufficient. ??Keep the cord area dry.?? Some baby girls will have a small bloody vaginal discharge. No need to worry as this is normal. It is not necessary to use lotions on the baby???s skin.?? Powders and oils are not recommended.?? Babies often get rash on their skin which comes and goes quickly and does not require any special care.?? Diaper rash can be treated with a zinc oxide preparation such as Desitin or Balmex diaper cream. Circumcision Care: Your nurse will teach you how to care for your baby???s circumcision depending on the type of circumcision your doctor or dumper bailer operator performed.?? Most circumcisions require A&D ointment for about 4-5 days.?? Be generous with the amount of A&D used as this will prevent the diaper from sticking when you go to change it. If a plastibell circumcision was done, the plastic ring around the penis will fall off in a week orso. Diapers: After the 1st??few days, the baby will start wetting more often.?? A breast fed baby will wet about6-8 times a day once mom???s milk comes in ??? usually day 4 or 5.?? This is a good sign that the baby is getting plenty to eat.?? You may notice an orangey-pink stain in the diaper which is normal for the first few days. The baby???s first bowel movements are sticky, black and tarry.?? As the baby starts to feed more often over the next couple of days, the stool will change to a seedy yellowish green color and eventually a loose mustard like stool for a breast fed baby and a more formed yellow stool for a bottle fed baby. your Baby: ??Congratulations on deciding to breastfeed your baby! You are providing your baby with the most nourishing food source on the planet, your breast milk.?? Cues such as rooting, suckling, licking and fussing may be telling you that your baby is ready to eat ??? and it is time to offer your breasts. The first weeks following the are a time for you and your baby to learn.?? The baby may be sleepy the first day after with 8 to 12 attempts ??? including 2 to 4 good feedings.?? Over the next couple of days the baby will become more wakeful, feed 8 to 12 times a day and have more wet and poopy diapers.?? Cluster feeding, especially during the evening/night time, is normal. ?? Listen for swallowing sounds and watch the baby as they become more relaxed at the breast ??? both good signs that the baby is getting a good amount of milk.?? Refrain from smoking or eating edible marijuana while you are . Even though marijuana is legal in the state of [place],??it is harmful for your baby.??It stays in breast milk for along period of time and THC can be found in the baby's urine for up to 3 weeks. Second hand smoke can also increase the risk??of Sudden Syndrome / SIDS. ?? Nursing is wonderful but many moms and babies have some degree of difficulty with at first. Don???t give up!?? There are many resources available to help you overcome these temporary problems. Your medical assistant supervisor wants to hear from you if you are having difficulties and can offermany helpful suggestions.?? Some offices have consultants on staff. [facility]???s Consultation Service is available 7 days a week, 8am to 3pm at [phone].?? Press 1 to schedule an outpatient appointment.?? Press 3 to leave a message for the hematology oncology consultant, a real estate listing consultant will return your call that day or the next if you call after 3pm. Support Groups ??? [facility] offers free gatherings for moms and babies weekly.?? All groups meet at the [facility]???s 2nd??floor, typically in the [facility] Conference Room, Saturday???s 1 to 2 pm.?? [employer] is a worldwide organization with local community support, mother to mother support.?? Information can be found at https://www.lllusa.org Formula Feeding your Baby: Formula fed babies should eat every 3 to 4 hours.?? Look for cues that your baby is ready ??? such as rooting and sucking, licking and fussing.?? At the baby???s stomach is small and may take 10-15ml of formula.?? Over the next few days the baby will become more wakeful and feed more frequently, gradually increasing the amounts of formula taken at a feeding.?? Your medical assistant supervisor will provideinstructions on how to increase the amount.?? Refer to packaging for formula preparation directions, depending on the type of formula you purchase ??? powder, concentrate or ready to feed. Safety: ALWAYS REMEMBER - BACK TO SLEEP! Babies sleep safest on their backs.?? Every sleep.?? Every time.?? Every nap. Babies need a firm sleep surface with a tight fitting bottom sheet.?? NO loose bedding.?? NO pillows.?? NO bumper pads or rolls.?? NO heavy or fluffy blankets. NO stuffed toys. It is not safe for your baby to sleep in your bed, in a chair, or on a sofa.?? Your baby should notsleep with you or anyone else. Car Seat: Always place your baby in a rear facing car seat in the backseat of the car. Car seat inserts that come with the car seat can be used as they are crash tested with the seat.?? You should not buy additional inserts.?? Dress the baby in a weather appropriate outfit.?? Avoid bulky clothing such as snowsuits or jackets as the baby may squirm in the seat, loosening the shoulder straps and come out of the top of the harness if you need to brake hard or are in an accident.?? Once the baby issecured in the seat you can cover your little one with a blanket if needed.?? If your baby was bornprematurely, follow the directions given to you.?? If you have not already done so, check to make sure your car seat is installed correctly. Check with your local Fire and Police Department to see if they offer car seat inspections at a location close to you. Babies Can Move: ?? Never leave your baby unattended on any surface, raised or flat, or while bathing.?? They can squirm, fall or hurt themselves.?? Always fasten the safety belt when using an infantseat or swing ??? as they may lean forward and fall. Good Handwashing is the number one way you can protect the baby from too?? many germs and prevent infection.?? When family and friends visit ask that they wash their hands before holding your baby.??Also avoid crowds the first month of your baby???s life to protect from colds and flus. Shaking a baby out of frustration can cause severe and lasting damage, even to a baby.?? If you feel you are becoming angry or overwhelmed, place the baby in a safe place and walk away.?? Call a friend or family member.?? If they are not able to offer immediate help call the Parental Stress Hotline at?? , an anonymous 19/11 source of help. Warning Signs to notify your medical assistant supervisor of: Most babies develop a small amount of jaundice (a yellowish skin color) in the face and upper chest, by about 3 days of age.?? If the yellow color extends below the baby???s belly or if the baby is very sleepy and not feeding well, call your medical assistant supervisor. A rectal temperature of 100.4F as it could be a sign of infection. Projectile vomiting that continues with each feeding could indicate reflux or a problem with the formula. Extreme sleepiness or very fussy. Cold symptoms with nasal stuffiness, especially if the baby is having difficulty feeding. Constipation with hard stools. Blue or dusky color, call 144. If Your Baby Needs to Remain in the Hospital: Please leave your baby???s ID bracelets on if your baby needs to remain in the hospital after you are discharged home. The phone number to NICU is [phone]. The phone number to [facility] is [phone]. The phone number to [facility] is [phone]. moms should pump every 2-3 hours or 8-12 times in 24 hours.?? If unable to place the baby to breast, if you are having difficulty getting the baby to latch on, or if the baby remains inthe hospital after you are discharged ??? bring the pumped milk to the hospital, labeled with name,date and time.?? Carry it in a small cooler or diaper bag with an ice pack and bring it the next time you visit your baby.?? Consultation Services is available if you need to rent or purchase a pump or products.?? Call and leave a message at [phone] ??? press 3 and a real estate listing consultant will return your call that day or the next if you call after 3pm. ? * Shannan Camejo: PERFORM Event Display: Care Team Progress Note Authored Date: [id number] Patient: ??VIDAL ESCOBEDO ? Age:??23 Years?Sex:??Female?:??2000?? Assessment/Plan Cart Round Visit (DAY 1, 22 hours of life) ??Current Experience ?Baby: Rosalina ? Plan: breast ? Latch: yes, sometimes pinching ? Output:??5 stools, not recorded, encouraged to record on feeding sheet ? Problems: discomfort with latch at times Basic education discussed with mother/family including:? Positioning for optimal feeding; adjust position in cross cradle Asymmetric latch technique; ear/shoulder/hip aligned with head extended Frequent breast stimulation for initiation and maintenance of milk supply _Coming to full milk volume in first 14 days Engorgement prevention and management; cold therapy, no pumping on top of feeding Hand expression; demonstrates independently When to use a breast pump Information on how to obtain a breast pump; has toy from vital milk Consultation reference guide given to mother with contact information for services and ongoing support as needed.? Expectations ?1-2 feeds/1??void?in first 24 hours, ? 8-10 feeds/ 4 voids/2-3 stool by day 4 when milk arrives, ? Feeds are not routine but balance out over 24 hours.? Sleepy behavior during the day ? Frustrated and cluster feeding throughout the night ?If spitting up amniotic fluid, spoon feeding can supplement??the feeds ? Skin to Skin helps engage and stimulate our to help them identify their own hunger ? 's hands demonstrate their needs?(Fists=hunger) ?(Open hands=satiated) ? (Palms out=disengage) ??parents will use [facility], encouraged to use support there and educated re in person group support through them as well. ? will follow up with patient until discharge to ensure latch and supply are fully educated for their future success.? OB Summary : 1 . Baby A - Weight: 3.437 kg Baby A - Date, Time of : 05/22/24 13:58:00 Baby A - Gender: Female Baby A - Complications: Meconium stained fluid EGA at Documented Date, Time: 40W 2D Weight at Delivery Baby A - Delivery Type: Vaginal Delivery Complications: None OB History History?(0,0,0,0)?No previous pregnancies history have been recorded Active Problem List Active Problem List GBS carrier: (Medical) : (Obstetric) (08/28/23) : (Medical) Home Medications Multivitamin, : 1 tablet, By Mouth, Daily Medications Medications (5) Active SCHEDULED: (2) Docusate Sodium 100 mg Capsule (Docusate Sodium Capsule) ??100 mg 1 capsule, By Mouth, 2 times a day Fluzone Trivalent (6mo ??? 64yr) Inj 0.5mL (Influenza, Trivalent Vaccine) ??0.5 mL, Intramuscular, Once CONTINUOUS: (0) PRN: (3) Acetaminophen 325 mg Tablet (Acetaminophen Tablet) ??650 mg, By Mouth, Every 4 hours Chloraseptic Lozenge ??1 lozenge, By Mouth, Every 3 hours Ibuprofen 800 mg Tablet (Ibuprofen Tablet) ??800 mg, By Mouth, Every 8 hours Patient Care team information Care Team Personnel Name: Eliseo HERRERA, Saurabh Position: Reference Physician Member Role: PCP Address: [address] [place] [address]- Telecom: Name: Chandrika Easley RN Position: [facility] OB RN Member Role: Patient Care Provider Name: Boy Albarado RN Position: [facility] OB RN Member Role: Patient Care Provider Care Team Related Persons Name: VIDAL ESCOBEDO Name: SHEN ESCOBEDO Insurance Providers Guarantor name: MAGGIE Health Plan Information #: 1 Payer: [facility] [employer] PPO Member Number: [id number] Policy Number: NA Group Number: [id number] Health Plan Information #: 2 Payer: [facility] [employer] PPO Member Number: [id number] Policy Number: NA Group Number: NA
--- OUTSIDE RECORDS SUMMARY | 2024-06-17 11:12 | XMS_ITS | Clinical Summary ---
Author Organization [facility] Address [address] [place] [address] Care Team Providers Care Dope Firer Name Role Phone Unavailable Primary Care Provider Unavailabl e Source Comments PLEASE NOTE, if this patient is a minor, it may be UNLAWFUL to discuss sensitive information that is contained in these records (such as FAMILY PLANNING, MENTAL HEALTH or SUBSTANCE ABUSE) with the minor patient's parent or other person without the patient's specific authorization.[facility] Social History Tobacco Use Types Packs/Day Years Used Date Smoking Tobacco: Never Assessed Social Connections Answer Date Recorded Connectedness 0 01/09/2024 Financial Resource Strain Answer Date R ecorded Financial Resource Strain 0 2021 Stress Answer Date Recorded Stress 0 05/01/2021 Physical Activity Answer Date Recorded Physical Activity 0 05/01/2021 Food Insecurity Answer Date Recorded Food 0 01/23/2024 Transportation Needs Answer Date Record ed Transportation 0 05/01/2021 Housing Stability Answer Date Recorded Housing 0 05/01/2021 Safety and Environment Answer Date Nithin rded Safety 0 05/01/2021 Utilities Answer Date Recorded Utilities 0 05/01/2021 Employment Answer Date Recorded Stress 0 01/09/2024 Comments Unknown Sex and Gender Information Value Date Recorded Sex Assigned at Not on file Legal Sex Female 4:05 PM PST Gender Identity Not on file Sexual Orientation Not on file Plan of Treatment Not on file Insurance [employer]
== END 2024-06-17 11:03 | disposition home or self-care (01) ==
PROVIDERS: PCP Internal Medicine; Visit Provider Internal Medicine
DX: Z00.00 Encounter for general adult medical examination without abnormal findings (principal); M67.442 Ganglion, left hand; Z23 Encounter for immunization

== ENCOUNTER → 2024-06-17 10:34 | Outpatient (BNVA) | payer BC, SELFPAY | PROVIDERS: PCP Internal Medicine; Visit Provider Internal Medicine | DX: Z00.00 Encounter for general adult medical examination without abnormal findings (principal); Z23 Encounter for immunization; M67.442 Ganglion, left hand | CPT/HCPCS: 90471; 90715; 96127 ==